=== PATIENT | female | born 1985 | race African-American/Black ===

== ENCOUNTER 2016-12-23 09:57 | Emergency (ER) | payer SELFPAY ==
[~2016-12-23] VITALS: Ht 160 cm; Wt 90.0 kg
[2016-12-23 10:15] VITALS: BP 136/84
== END 2016-12-23 10:18 | disposition home or self-care (01) ==
LOC: ER 10:08
DX: R56.9 Unspecified convulsions (principal); S00.12XA Contusion of left eyelid and periocular area, initial encounter; F17.200 Nicotine dependence, unspecified, uncomplicated; Y92.89 Other specified places as the place of occurrence of the external cause; Y99.9 Unspecified external cause status; Y93.89 Activity, other specified
CPT/HCPCS: 99283; Z7610